=== PATIENT | female | born 1960 | race Two or more races ===

== ENCOUNTER → 2024-06-01 | Outpatient (CLI) | payer MEDICAID, SELFPAY ==
--- NOTE | 2024-06-01 15:02 | XR_ITS ---
Examination: CT abdomen and pelvis without contrast. Coronal 3-D reconstructions. Sagittal 2-D reconstructions. Date and time of exam:June 01, 2024 1530 hours INDICATIONS: Abdominal surgery tummy [place] April 21, 2024 with swelling and lump and drainage noticed beginning 3 weeks ago CTDI: vol (mGy): 7.42 DLP: (mGycm): 395 Technique: Axial images of the abdomen have been obtained, 3 mm slice thickness Intravenous contrast material has not been administered. Low dose protocols were performed. One or more of the following dose reduction techniques were used; automated exposure control, adjustment of the mA and/or KV according to patient size, use of iterative reconstruction technique. Findings: Gastric sutures No focal liver or splenic lesions No pancreatic or adrenal mass No renal or ureteral calculi Fluid containing mass in the anterior abdominal wall transverse dimension 15 cm AP dimension 6.2 cm cephalad caudad dimension 22 cm Urinary bladder intact Advanced degenerative disc disease L3-L4 IMPRESSION: Large fluid collection in the anterior abdominal wall 15 x 6.2 x 22 cm, consider seroma, hematoma
== END | disposition home or self-care (01) ==
LOC: CDIM 14:34
PROVIDERS: PCP Nurse Practitioner Family; Referring Provider Nurse Practitioner Family; Visit Provider Nurse Practitioner Family
DX: R10.9 Unspecified abdominal pain (principal)
CPT/HCPCS: 74176

== ENCOUNTER 2024-06-02 15:45 | Emergency (ER) | payer MEDICAID, SELFPAY ==
[2024-06-02 15:46] VITALS: BMI 25.6
--- NOTE | 2024-06-02 16:15 | XR_ITS ---
Examination: CT abdomen with intravenous contrast CT pelvis with intravenous contrast 2-D coronal reconstructions 2-D sagittal reconstructions Date and time of exam:June 02, 2024 1907 hrs. Comparison June 01, 2024 Indications: Abdominal distention and pain after abdominoplasty April 21, 2024. CTDI: vol (mGy) 7.85 DLP: (mGycm) 427 Technique: Multiple axial sections of the abdomen and pelvis have been obtained. 64 slice high-resolution scanner used. 3 mm axial sections have been obtained, post intravenous injection 60 cc Isovue-370 2-D sagittal, coronal reconstructions obtained. Low dose protocols were performed. One or more of the following dose reduction techniques were used; automated exposure control, adjustment of the mA and/or KV according to patient size, use of iterative reconstruction technique. Findings: No focal liver or splenic lesions Contracted gallbladder No pancreatic mass No hydronephrosis No bowel obstruction Normal appendix Enlarging fluid collection anterior abdominal wall, transverse dimension 16 cm AP dimension 7 cm cephalocaudad dimension 20 cm Urinary bladder intact Impression: Again noted very large fluid collection anterior abdominal wall, differential would include seroma, hematoma, abscess not excluded, clinical correlation advised
--- NOTE | 2024-06-02 16:21 | XR_ITS ---
Examination: PA chest single view TECHNIQUE: Upright PA chest single view Exam date and time: June 02, 2024 1628 hours INDICATIONS: Shortness of breath today. FINDINGS: The film is mislabeled right to left Normal heart size Lungs are clear The osseous structures are intact IMPRESSION: No active disease
--- NOTE | 2024-06-02 16:26 | XR_ITS ---
Examination: Abdomen sonogram, Limited Date and time of exam: 24 1712 hrs. Indications: Abdominal mass 2 months post tummy [facility] surgery April 21, 2024 Technique: Real-time gamboa scale transabdominal sonographic images of the upper abdomen obtained. Findings: Fluid-filled mass with septations 21 x 13 x 7 cm, consider seroma, hematoma at the area concern Impression: Large fluid-filled mass with septations, 21 x 13 x 7 cm, consider seroma, hematoma
[2024-06-02 16:27] VITALS: BP 100/67; PULSE 94; RESP 16; TEMP 37.1; O2SAT 97
--- NOTE | 2024-06-02 16:34 | EDNOTE_ITS ---
ED Skin Abcess FB-RME/HPI General Chief complaint: Skin/Abscess/Foreign Body Stated complaint: POSS ABCESS IN ABD S/P SURGERY/TUMMY TUCK Time Seen by Provider: 06/02/24 16:12 Arrival date/time: 06/02/24 15:45 RME / HPI RME / HPI narrative: This section includes all my notes and documentations, including HPI, PE, MDM, Procedure Notes, and PLAN. Diallo Yu MD HPI: 63 year old female with history of tummy tuck performed in [place], [place] on 04/21/2024, hypertension, diabetes, hyperlipidemia presents to the ED for evaluation of possible abdominal/skin infection post surgery. States she had her surgery performed 04/21/2024 without complications and followed up on 05/08/2024 where she had her drains removed. Says 3 days after drain removal noted discomfort and swelling to her abdomen and dainage from the belly button. Consulted with PCP who ordered a CT scan that she had performed yesterday and was called today advising she come to the ED. Denies any fever. But reports chills and diaphoresis at night. No other associated symptoms reported. ROS: Gastrointestinal: negative except as documented in HPI. Genitourinary: negative except as documented in HPI. Musculoskeletal: negative except as documented in HPI. Skin: negative except as documented in HPI. Neurological: negative except as documented in HPI. Physical Exam: General: Alert and oriented. No acute distress. Eyes: Conjunctivae and lids clear. ENT: No nasal congestion. Neck: Supple. Heart: RRR. Lungs: No respiratory distress. Good air movement. No rhonchi, wheezing, rales. Abdomen: Soft with football sized mass palpable. Decreased bowel sounds. No rebound or guarding. At the umbilicus and lower abdominal incision area, erythema and edema and calor and pus drainage noted. Skin: Warm and dry. Neuro: Alert and oriented X 3. I ordered diagnostic tests. At 6 PM on 06/02/24, the care of the patient was transferred to Dr. Garcia. I ordered oral KCl 40 mEq and MgSO4 2 gram IV with partial diagnostic test res ults showing hypokalemia and hypomagnesemia. Diallo Yu MD Related Data Home Medications ?Medication ?Instructions ?Recorded ?Confirmed atorvastatin 40 mg tablet 40 mg PO QPM 07/07/20 07/07/20 glipizide 5 mg tablet 5 mg PO BID 07/07/20 07/07/20 lisinopril 20 1 tab PO BID 07/07/20 07/08/20 mg-hydrochlorothiazide 12.5 mg tablet metformin 1,000 mg tablet 1,000 mg PO BID 07/07/20 07/07/20 Allergies Allergy/AdvReac Type Severity Reaction Status Date / Time UNKNOWN PAIN MED Allergy Severe Anaphylaxis Uncoded 06/02/24 15:49 Past Medical History Past Medical History CARDIAC: Positive Cardiac Disorders, Hypercholesterolemia and Hypertension GASTROINTESTINAL: Positive Gastrointestinal Disorders REPRODUCTIVE: Positive Previous Pregnancies MUSCULOSKELETAL: Positive Musculoskeletal Disorders and Arthritis ENDOCRINE: Positive Endocrine Disorders and Diabetes Mellitus Type 2 HEMATOLOGIC: Positive Blood Disorders and Anemia (IN THE PAST) OTHER HISTORY: Positive Shingles (5 YEARS AGO) and Chicken Pox Family History FAMILY HISTORY: Positive Family Cardiac Disorders (FATHER- HTN, BROTHER- OK) Surgical History SURGICAL: Positive Eye Surgery (LASIK), Nose Surgery (SINUS), Hysterectomy and Tubal Ligation Social History SMOKING STATUS: Never smoker Course Quality Measures none Orders Category Date Time Status CT Screening NOW Care 06/02/24 16:15 Active Saline [Insert IV] NOW Care 06/02/24 16:[address] abdomen pelvis w con Stat Exams 06/02/24 16:15 Ordered US abdomen limited Stat Exams 06/02/24 16:26 Ordered XR chest 1V portable Stat Exams 06/02/24 16:21 Completed Blood Culture (Lab) Stat Lab 06/02/24 16:44 Received CBC Stat Lab 06/02/24 16:44 Results CMP [Comprehensive Metabolic Panel] Stat Lab 06/02/24 16:44 Completed CRP [C-Reactive Protein] Stat Lab 06/02/24 16:44 Completed ESR [Sed Rate (ESR)] Stat Lab 06/02/24 16:44 Results Lactate (Lactic Acid) Stat Lab 06/02/24 16:44 Completed Magnesium Stat Lab 06/02/24 16:44 Completed Procalcitonin Stat Lab 06/02/24 16:44 Completed UA [Urinalysis] Stat Lab 06/02/24 17:05 Received KCL 10% Liq UDC 15 ML Med 06/02/24 17:29 Discontinued 40 meq PO X1 ONE Magnesium Sulfate 2 GM Ivpb [Magnesium Sulfate Ivpb] Med 06/02/24 17:29 Active 2 gm in 50 ml IV X1 Vital Signs Vital signs: Vital Signs Temperature 98.8 F 06/02/24 16:27 Pulse Rate 94 06/02/24 16:27 Respiratory Rate 16 06/02/24 16:27 Blood Pressure 100/67 06/02/24 16:27 Pulse Oximetry (%) 97 06/02/24 16:27 Oxygen Delivery Method Room Air 06/02/24 16:27 Skin / Abscess / Foreign Body Patient data External records reviewed:: [facility] previous records Clinical information provided by:: patient and family Social determinants that could affect healthcare access:: none Patient has the following chronic illnesses:: Hypertension, diabetes, hyperlipidemia How is presenting disease/condition affected by chronic disease/condition?: uneffected by Evaluation data The following diagnostics were reviewed and interpreted by me:: lab results and radiology exam(s) Lab and/or radiology exams considered but not ordered:: None Interpretation Summary: Diagnostic test results pending Medications / Prescriptions Medications or Prescriptions considered but not ordered:: None Medication administrations:: Medication Administration History Magnesium Sulfate (Magnesium Sulfate Ivpb) 2 gm in 50 mls @ 25 mls/hr IV X1 ONE Stop: 06/02/24 19:28 Discontinued Medications Potassium Chloride (Potassium Chloride 10% 20 Meq/15 Ml Udc) 40 meq PO X1 ONE Stop: 06/02/24 17:30 Potassium and magnesium Consultations Consultation(s) initiated? (list below): No Diagnosis Skin/Abscess Differential Diagnosis: abscess of skin or subcutaneous tissue and cellulitis Most likely diagnosis given after review of the tests above:: Diagnostic test results pending Admission Indicated Admission indicated?: not indicated Explain why admission is indicated or not indicated:: Diagnostic test results pending Admission Request Was there a request for admission?: No Disposition Plan Disposition Plan: other (specify) (Diagnostic test results pending) Discharge Plan Prescriptions/Referrals Prescriptions/Med Rec: No Action atorvastatin 40 mg Tablet 40 mg PO QPM lisinopril-hydrochlorothiazide 20-12.5 mg Tablet 1 tab PO BID metformin 1,000 mg Tablet 1,000 mg PO BID glipizide 5 mg Tablet 5 mg PO BID Problem List Clinical Impression: Post surgical complication Patient/Caregiver Discharge Instructions Print Language: Persian
[2024-06-02 16:52] LABS: Lactate (Lactic Acid) 1.5 mMol/L (0.4-2.0)
[2024-06-02 16:53] LABS: Basophils % (Auto) 0 % (0-2.5); Eosinophils % (Auto) 0 % (0-10); Hematocrit 28.8 % (36.0-46.0); Hemoglobin 9.7 g/dL (12.0-16.0); Immature Granulocytes % (Auto) 0 % (0-0); Immature Granulocytes Auto 0.04 Thou/mm3 (0.00-0.00); Lymphocytes # (Auto) 4.2 Thou/mm3 (1.0-4.8); Lymphocytes % (Auto) 40 % (10-50); Mean Corpuscular HGB Conc 33.7 g/dl (31.0-37.0); Mean Corpuscular Hemoglobin 27.2 pg (25.0-35.0); Mean Corpuscular Volume 81 fL (80-100); Monocytes # (Auto) 0.6 Thou/mm3 (0.0-0.8); Monocytes % (Auto) 6 % (0-12); Neutrophils # (Auto) 5.6 Thou/mm3 (1.8-7.7); Neutrophils % (Auto) 53 % (37-80); Nucleated Red Blood Cell % 0 /100 WBC (0); Platelet Count 676 Thou/mm3 (140-440); RDW Standard Deviation 37.8 fL (36.4-46.3); Red Blood Count 3.57 Miln/mm3 (4.00-5.20); White Blood Count 10.5 Thou/mm3 (3.6-11.0)
[2024-06-02 17:15] LABS: Sed Rate (ESR) 62 mm/hr (0-30)
[2024-06-02 17:23] LABS: Alanine Aminotransferase 26 U/L (10-49); Albumin, Serum 4.4 gm/dL (3.4-4.8); Albumin/Globulin Ratio 1.5 (1.2-2.2); Alkaline Phosphatase 121 U/L (46-116); Anion Gap 11 (7-16); Aspartate Amino Transferase 19 U/L (0-34); BUN/Creatinine Ratio 14 Ratio (12-20); Bilirubin,Total 0.2 mg/dL (0.3-1.2); Blood Urea Nitrogen 7 mg/dL (9-23); C-Reactive Protein 5.6 mg/dL (0.0-0.9); Calcium 9.3 mg/dL (8.3-10.6); Calcium (Corrected) 9.3 mg/dL (8.5-10.1); Chloride 96 mMol/L (98-107); Creatinine (Component) 0.5 mg/dL (0.6-1.3); Estimated Creatinine Clearance 99.5 mL/min (>60); Glucose 182 mg/dL (74-106); Magnesium 1.4 mg/dL (1.6-2.6); Osmolality,Calculated 261 (275-295); Potassium 3.2 mMol/L (3.4-5.1); Procalcitonin < 0.04 ng/ml (0.0-0.49); Sodium 129 mMol/L (136-145); Total Protein 7.4 gm/dL (5.7-8.2); eGFR > 60 See Note
[2024-06-02 17:25] LABS: Collection Type, Urine Clean Catch
[2024-06-02] MEDS: Magnesium Sulfate 2 GM Ivpb 2 GM/50 ML BAG IV (17:29)
[2024-06-02] MEDS: POTASSIUM CHLORIDE 10% 20 MEQ/15 ML UDC 40 MEQ PO (17:29)
[2024-06-02 18:12] LABS: Bacteria,Urine Rare; Bilirubin,Urine Negative (Negative); Blood,Urine Negative (Negative); Clarity,Urine Clear (Clear/Hazy); Color,Urine Yellow (Lt Yel-Yel); Glucose, Urine Negative (Negative); Ketones,Urine Negative (Negative); Leukocyte Esterase,Urine Negative (Negative); Nitrite,Urine Negative (Negative); Protein,Urine Negative (Neg - Trace); RBC,Urine 1 /hpf (0-3); Specific Gravity,Urine 1.012 (1.001-1.035); Squamous Epithelial Cell,Urine < 1 /hpf (0-5); Urobilinogen,Urine Negative mg/dL (0.0-1.0); WBC,Urine 1 /hpf (0-5)
[2024-06-02 18:19] VITALS: BP 128/77; PULSE 78; RESP 18; TEMP 36.8; O2SAT 100
--- NOTE | 2024-06-02 19:55 | EDNOTE_ITS ---
Emergency Room Addendum <Mirian Cates - Last Filed: 06/02/24 22:02> Addendum Narrative: 1800: Care assumed from Dr. Yu, the previous shift emergency physician. Past medical, surgical, social and family history reviewed. Vitals and home medications reviewed. I will assume the care of the patient at this time, pending remainder of diagnostic tests and final disposition. Please refer to the emergency department record for history and examination from initial visit.? Physical exam by me shows patient under no acute distress at this time. 2140: Patient remains clinically stable throughout the emergency department visit. Re-assessment at the time of disposition demonstrates that the patient is in no acute distress. We reviewed all the results, analysis, and treatment plans. Patient is amenable to discharge. Strict return precautions were outlined. Patient was discharged in stable condition. Diagnoses: Post surgical complication, Postoperative seroma RADIOLOGY Procedure(s): CT abdomen pelvis w con Accession Number(s): [id number] cc: Diallo Yu MD; Taiwo Landeros MD; NO PRIMARY/FAMILY,PHYSICIAN~ Examination: CT abdomen with intravenous contrast CT pelvis with intravenous contrast 2-D coronal reconstructions 2-D sagittal reconstructions Date and time of exam:June 02, 2024 1907 hrs. Comparison June 01, 2024 Indications: Abdominal distention and pain after abdominoplasty April 21, 2024. CTDI: vol (mGy) 7.85 DLP: (mGycm) 427 Technique: Multiple axial sections of the abdomen and pelvis have been obtained. 64 slice high-resolution scanner used. 3 mm axial sections have been obtained, post intravenous injection 60 cc Isovue-370 2-D sagittal, coronal reconstructions obtained. Low dose protocols were performed. One or more of the following dose reduction techniques were used; automated exposure control, adjustment of the mA and/or KV according to patient size, use of iterative reconstruction technique. Findings: No focal liver or splenic lesions Contracted gallbladder No pancreatic mass No hydronephrosis No bowel obstruction Normal appendix Enlarging fluid collection anterior abdominal wall, transverse dimension 16 cm AP dimension 7 cm cephalocaudad dimension 20 cm Urinary bladder intact Impression: Again noted very large fluid collection anterior abdominal wall, differential would include seroma, hematoma, abscess not excluded, clinical correlation advised Dictated By: Taiwo Landeros MD Procedure(s): US abdomen limited Accession Number(s): [id number] cc: Diallo Yu MD; Taiwo Landeros MD; NO PRIMARY/FAMILY,PHYSICIAN~ Examination: Abdomen sonogram, Limited Date and time of exam: 24 1712 hrs. Indications: Abdominal mass 2 months post tummy tuck surgery April 21, 2024 Technique: Real-time gamboa scale transabdominal sonographic images of the upper abdomen obtained. Findings: Fluid-filled mass with septations 21 x 13 x 7 cm, consider seroma, hematoma at the area concern Impression: Large fluid-filled mass with septations, 21 x 13 x 7 cm, consider seroma, hematoma Dictated By: Taiwo Landeros MD Procedure(s): XR chest 1V portable Accession Number(s): [id number] cc: Diallo Yu MD; Taiwo Landeros MD~ Examination: PA chest single view TECHNIQUE: Upright PA chest single view Exam date and time: June 02, 2024 1628 hours INDICATIONS: Shortness of breath today. FINDINGS: The film is mislabeled right to left Normal heart size Lungs are clear The osseous structures are intact IMPRESSION: No active disease Dictated By: Taiwo Landeros MD <Dulce Garica MD - Last Filed: 06/04/24 20:02> Addendum Narrative: 1800: Care assumed from Dr. Yu, the previous shift emergency physician. Past medical, surgical, social and family history reviewed. Vitals and home medications reviewed. I will assume the care of the patient at this time, pending remainder of diagnostic tests and final disposition. Please refer to the emergency department record for history and examination from initial visit.? Physical exam by me shows patient under no acute distress at this time. Abdomen no erythema, mild serous drainage from umbilicus, no increased warmth, large discreet mass consistent with seroma 2140: Patient remains clinically stable throughout the emergency department visit. Re-assessment at the time of disposition demonstrates that the patient is in no acute distress. We reviewed all the results, analysis, and treatment plans. Abdominal binder placed. Patient is amenable to discharge. Strict return precautions were outlined. Patient was discharged in stable condition. Diagnoses: Post surgical complication, Postoperative seroma RADIOLOGY Procedure(s): CT abdomen pelvis w con Accession Number(s): [id number] cc: Diallo Yu MD; Taiwo Landeros MD; NO PRIMARY/FAMILY,PHYSICIAN~ Examination: CT abdomen with intravenous contrast CT pelvis with intravenous contrast 2-D coronal reconstructions 2-D sagittal reconstructions Date and time of exam:June 02, 2024 1907 hrs. Comparison June 01, 2024 Indications: Abdominal distention and pain after abdominoplasty April 21, 2024. CTDI: vol (mGy) 7.85 DLP: (mGycm) 427 Technique: Multiple axial sections of the abdomen and pelvis have been obtained. 64 slice high-resolution scanner used. 3 mm axial sections have been obtained, post intravenous injection 60 cc Isovue-370 2-D sagittal, coronal reconstructions obtained. Low dose protocols were performed. One or more of the following dose reduction techniques were used; automated exposure control, adjustment of the mA and/or KV according to patient size, use of iterative reconstruction technique. Findings: No focal liver or splenic lesions Contracted gallbladder No pancreatic mass No hydronephrosis No bowel obstruction Normal appendix Enlarging fluid collection anterior abdominal wall, transverse dimension 16 cm AP dimension 7 cm cephalocaudad dimension 20 cm Urinary bladder intact Impression: Again noted very large fluid collection anterior abdominal wall, differential would include seroma, hematoma, abscess not excluded, clinical correlation advised Dictated By: Taiwo Landeros MD Procedure(s): US abdomen limited Accession Number(s): [id number] cc: Diallo Yu MD; Taiwo Landeros MD; NO PRIMARY/FAMILY,PHYSICIAN~ Examination: Abdomen sonogram, Limited Date and time of exam: 2 hrs. Indications: Abdominal mass 2 months post tummy tuck surgery April 21, 2024 Technique: Real-time gamboa scale transabdominal sonographic images of the upper abdomen obtained. Findings: Fluid-filled mass with septations 21 x 13 x 7 cm, consider seroma, hematoma at the area concern Impression: Large fluid-filled mass with septations, 21 x 13 x 7 cm, consider seroma, hematoma Dictated By: Taiwo Landeros MD Procedure(s): XR chest 1V portable Accession Number(s): [id number] cc: Diallo Yu MD; Taiwo Landeros MD~ Examination: PA chest single view TECHNIQUE: Upright PA chest single view Exam date and time: June 02, 2024 1628 hours INDICATIONS: Shortness of breath today. FINDINGS: The film is mislabeled right to left Normal heart size Lungs are clear The osseous structures are intact
[2024-06-02 20:07] VITALS: BP 127/73; PULSE 82; RESP 18; TEMP 36.6; O2SAT 99
[2024-06-02 22:01] VITALS: BP 128/75; PULSE 82; RESP 16; TEMP 36.8; O2SAT 100
== END 2024-06-02 22:03 | disposition home or self-care (01) ==
PROVIDERS: Emergency Medicine; Emergency Provider Emergency Medicine
DX: L76.34 Postprocedural seroma of skin and subcutaneous tissue following other procedure (principal); R06.02 Shortness of breath; Y83.8 Other surgical procedures as the cause of abnormal reaction of the patient, or of later complication, without mention of misadventure at the time of the procedure
CPT/HCPCS: 36415; 71045; 74177; 76705; 80053; 81001; 83605; 83735; 84145; 85025; 85652; 86140; 87040; 96365; 96366; 99285; A4649; J3475; Q9967; A9270

== ENCOUNTER → 2024-06-22 | Outpatient (CLI) | payer MEDICAID, SELFPAY | END | disposition home or self-care (01) | PROVIDERS: PCP Nurse Practitioner Family; Referring Provider Nurse Practitioner Family; Visit Provider Student in an Organized Health Care Education/Training Program | DX: T81.89XA Other complications of procedures, not elsewhere classified, initial encounter (principal); I10 Essential (primary) hypertension; E11.69 Type 2 diabetes mellitus with other specified complication; M17.10 Unilateral primary osteoarthritis, unspecified knee; Z79.4 Long term (current) use of insulin; Z98.890 Other specified postprocedural states; Z79.84 Long term (current) use of oral hypoglycemic drugs | CPT/HCPCS: 97597; 99213; A9270; G0463 ==

== ENCOUNTER → 2024-06-29 | Outpatient (CLI) | payer MEDICAID, SELFPAY | END | disposition home or self-care (01) | LOC: SWHD 10:02 | PROVIDERS: Visit Provider Student in an Organized Health Care Education/Training Program | DX: T81.89XA Other complications of procedures, not elsewhere classified, initial encounter (principal); I10 Essential (primary) hypertension; E11.69 Type 2 diabetes mellitus with other specified complication; M17.10 Unilateral primary osteoarthritis, unspecified knee; Z79.4 Long term (current) use of insulin; Z98.890 Other specified postprocedural states; Z79.84 Long term (current) use of oral hypoglycemic drugs | CPT/HCPCS: 97597; A9270 ==

== ENCOUNTER → 2024-07-06 | Outpatient (CLI) | payer MEDICAID, SELFPAY | END | disposition home or self-care (01) | LOC: SWHD 10:22 | PROVIDERS: PCP Nurse Practitioner Family; Referring Provider Nurse Practitioner Family; Visit Provider Surgery | DX: T81.89XA Other complications of procedures, not elsewhere classified, initial encounter (principal); I10 Essential (primary) hypertension; E11.69 Type 2 diabetes mellitus with other specified complication; M17.10 Unilateral primary osteoarthritis, unspecified knee; Z79.4 Long term (current) use of insulin; Z79.84 Long term (current) use of oral hypoglycemic drugs; Z98.890 Other specified postprocedural states | CPT/HCPCS: 17250; A9270 ==

== ENCOUNTER → 2024-07-13 | Outpatient (CLI) | payer MEDICAID, SELFPAY | END | disposition home or self-care (01) | LOC: SWHD 10:22 | PROVIDERS: PCP Nurse Practitioner Family; Referring Provider Nurse Practitioner Family; Visit Provider Student in an Organized Health Care Education/Training Program | DX: T81.89XA Other complications of procedures, not elsewhere classified, initial encounter (principal); I10 Essential (primary) hypertension; E11.69 Type 2 diabetes mellitus with other specified complication; M17.10 Unilateral primary osteoarthritis, unspecified knee; Z98.890 Other specified postprocedural states; Z79.84 Long term (current) use of oral hypoglycemic drugs; Z79.4 Long term (current) use of insulin | CPT/HCPCS: 17250; 11042; A9270 ==

== ENCOUNTER → 2024-07-20 | Outpatient (CLI) | payer MEDICAID, SELFPAY | END | disposition home or self-care (01) | LOC: SWHD 08:06 | PROVIDERS: PCP Nurse Practitioner Family; Referring Provider Nurse Practitioner Family; Visit Provider Student in an Organized Health Care Education/Training Program | DX: T81.89XA Other complications of procedures, not elsewhere classified, initial encounter (principal); I10 Essential (primary) hypertension; E11.69 Type 2 diabetes mellitus with other specified complication; M17.10 Unilateral primary osteoarthritis, unspecified knee; Z98.890 Other specified postprocedural states; Z79.4 Long term (current) use of insulin; Z79.84 Long term (current) use of oral hypoglycemic drugs | CPT/HCPCS: 99213; A9270; G0463 ==

== ENCOUNTER → 2024-08-03 | Outpatient (CLI) | payer MEDICAID, SELFPAY | END | disposition home or self-care (01) | LOC: SWHD 08:06 | PROVIDERS: PCP Nurse Practitioner Family; Referring Provider Nurse Practitioner Family; Visit Provider Student in an Organized Health Care Education/Training Program | DX: T81.89XA Other complications of procedures, not elsewhere classified, initial encounter (principal); I10 Essential (primary) hypertension; E11.69 Type 2 diabetes mellitus with other specified complication; M17.10 Unilateral primary osteoarthritis, unspecified knee; Z98.890 Other specified postprocedural states; Z79.4 Long term (current) use of insulin; Z79.84 Long term (current) use of oral hypoglycemic drugs | CPT/HCPCS: 99213; G0463 ==

== ENCOUNTER → 2024-11-03 | Outpatient (CLI) | payer MEDICARE, MEDICAID, SELFPAY ==
--- NOTE | 2024-11-03 | XR_ITS ---
Examination: PA lateral chest 2 views TECHNIQUE: Upright PA lateral chest 2 views Exam date and time: November 03, 2024 1240 hours Comparison June 02, 2024 INDICATIONS: Covid diagnosis one year ago FINDINGS: Normal heart size. Lungs are clear. Osseous structures are demineralized IMPRESSION: No active disease
== END | disposition home or self-care (01) ==
DX: Z01.818 Encounter for other preprocedural examination (principal)
CPT/HCPCS: 71046

== ENCOUNTER → 2024-11-12 | Outpatient (CLI) | payer MEDICARE, MEDICAID, SELFPAY ==
[2024-11-12 08:41] LABS: Basophils # (Auto) 0.1 Thou/mm3 (0.0-0.2); Basophils % (Auto) 1 % (0-2.5); Eosinophils % (Auto) 0 % (0-10); Hematocrit 38.6 % (36.0-46.0); Hemoglobin 12.8 g/dL (12.0-16.0); Immature Granulocytes % (Auto) 0 % (0-0); Immature Granulocytes Auto 0.02 Thou/mm3 (0.00-0.00); Lymphocytes # (Auto) 3.9 Thou/mm3 (1.0-4.8); Lymphocytes % (Auto) 44 % (10-50); Mean Corpuscular HGB Conc 33.2 g/dl (31.0-37.0); Mean Corpuscular Hemoglobin 27.8 pg (25.0-35.0); Mean Corpuscular Volume 84 fL (80-100); Monocytes # (Auto) 0.5 Thou/mm3 (0.0-0.8); Monocytes % (Auto) 6 % (0-12); Neutrophils # (Auto) 4.4 Thou/mm3 (1.8-7.7); Neutrophils % (Auto) 49 % (37-80); Nucleated Red Blood Cell % 0 /100 WBC (0); Platelet Count 428 Thou/mm3 (140-440); RDW Standard Deviation 43.4 fL (36.4-46.3); White Blood Count 8.9 Thou/mm3 (3.6-11.0)
[2024-11-12 09:07] LABS: Alanine Aminotransferase 19 U/L (10-49); Albumin, Serum 4.7 gm/dL (3.4-4.8); Albumin/Globulin Ratio 1.7 (1.2-2.2); Alkaline Phosphatase 100 U/L (46-116); Anion Gap 9 (7-16); Aspartate Amino Transferase 19 U/L (0-34); BUN/Creatinine Ratio 12 Ratio (12-20); Bilirubin,Total 0.6 mg/dL (0.3-1.2); Blood Urea Nitrogen 7 mg/dL (9-23); Calcium 9.3 mg/dL (8.3-10.6); Calcium (Corrected) 9.3 mg/dL (8.5-10.1); Carbon Dioxide 28.7 mMol/L (20.0-31.0); Chloride 100 mMol/L (98-107); Creatinine (Component) 0.6 mg/dL (0.6-1.3); Globulin 2.8 gm/dL (2.3-3.5); Glucose 97 mg/dL (74-106); Osmolality,Calculated 273 (275-295); Potassium 3.8 mMol/L (3.4-5.1); Sodium 138 mMol/L (136-145); Total Protein 7.5 gm/dL (5.7-8.2); eGFR > 60 See Note
[2024-11-12 09:25] LABS: Partial Thromboplastin Time 25.2 Seconds (22.0-36.0); Prothrombin Time 10.9 Seconds (9.0-12.2)
== END | disposition home or self-care (01) ==
LOC: COPL 07:31
PROVIDERS: PCP Family Medicine
DX: Z01.818 Encounter for other preprocedural examination (principal)
CPT/HCPCS: 36415; 80053; 85025; 85610; 85730

== ENCOUNTER → 2024-12-03 | Outpatient (CLI) | payer MEDICARE, MEDICAID, SELFPAY ==
[2024-12-03 13:11] VITALS: BMI 26.5
[2024-12-03 14:04] LABS: Basophils # (Auto) 0.1 Thou/mm3 (0.0-0.2); Basophils % (Auto) 0 % (0-2.5); Eosinophils % (Auto) 0 % (0-10); Hematocrit 39.9 % (36.0-46.0); Hemoglobin 13.4 g/dL (12.0-16.0); Immature Granulocytes % (Auto) 0 % (0-0); Immature Granulocytes Auto 0.03 Thou/mm3 (0.00-0.00); Lymphocytes # (Auto) 5.9 Thou/mm3 (1.0-4.8); Lymphocytes % (Auto) 49 % (10-50); Mean Corpuscular HGB Conc 33.6 g/dl (31.0-37.0); Mean Corpuscular Hemoglobin 28.2 pg (25.0-35.0); Mean Corpuscular Volume 84 fL (80-100); Monocytes # (Auto) 0.5 Thou/mm3 (0.0-0.8); Monocytes % (Auto) 4 % (0-12); Neutrophils # (Auto) 5.4 Thou/mm3 (1.8-7.7); Neutrophils % (Auto) 45 % (37-80); Nucleated Red Blood Cell % 0 /100 WBC (0); Platelet Count 423 Thou/mm3 (140-440); RDW Standard Deviation 42.4 fL (36.4-46.3); Red Blood Count 4.76 Miln/mm3 (4.00-5.20)
[2024-12-03 14:18] LABS: Prothrombin Time 11.4 Seconds (9.0-12.2)
[2024-12-03 14:25] LABS: Alanine Aminotransferase 18 U/L (10-49); Albumin, Serum 4.7 gm/dL (3.4-4.8); Albumin/Globulin Ratio 1.8 (1.2-2.2); Alkaline Phosphatase 95 U/L (46-116); Anion Gap 12 (7-16); BUN/Creatinine Ratio 15 Ratio (12-20); Bilirubin,Total 0.5 mg/dL (0.3-1.2); Blood Urea Nitrogen 9 mg/dL (9-23); Calcium 9.7 mg/dL (8.3-10.6); Calcium (Corrected) 9.7 mg/dL (8.5-10.1); Carbon Dioxide 27.5 mMol/L (20.0-31.0); Chloride 95 mMol/L (98-107); Creatinine (Component) 0.6 mg/dL (0.6-1.3); Estimated Creatinine Clearance 83.2 mL/min (>60); Globulin 2.6 gm/dL (2.3-3.5); Glucose 97 mg/dL (74-106); Osmolality,Calculated 266 (275-295); Potassium 4.5 mMol/L (3.4-5.1); Sodium 134 mMol/L (136-145); Total Protein 7.3 gm/dL (5.7-8.2); eGFR > 60 See Note
== END | disposition home or self-care (01) ==
LOC: SLAB 12-07 09:12
PROVIDERS: Anesthesiology; Referring Provider Orthopaedic Surgery; Visit Provider Orthopaedic Surgery
DX: Z01.812 Encounter for preprocedural laboratory examination (principal); M20.12 Hallux valgus (acquired), left foot
CPT/HCPCS: 36415; 80053; 85025; 85610; 85730

== ENCOUNTER → 2024-12-31 | Outpatient (CLI) | payer MEDICARE, MEDICAID, SELFPAY ==
[2024-12-31 09:10] LABS: Collection Type, Urine Clean Catch
[2024-12-31 09:34] LABS: Basophils # (Auto) 0.1 Thou/mm3 (0.0-0.2); Basophils % (Auto) 1 % (0-2.5); Eosinophils # (Auto) 0.0 Thou/mm3 (0.0-0.5); Eosinophils % (Auto) 0 % (0-10); Hematocrit 38.1 % (36.0-46.0); Hemoglobin 13.0 g/dL (12.0-16.0); Immature Granulocytes Auto 0.01 Thou/mm3 (0.00-0.00); Lymphocytes # (Auto) 3.8 Thou/mm3 (1.0-4.8); Lymphocytes % (Auto) 46 % (10-50); Mean Corpuscular HGB Conc 34.1 g/dl (31.0-37.0); Mean Corpuscular Hemoglobin 28.4 pg (25.0-35.0); Mean Corpuscular Volume 83 fL (80-100); Monocytes # (Auto) 0.5 Thou/mm3 (0.0-0.8); Monocytes % (Auto) 6 % (0-12); Neutrophils # (Auto) 3.9 Thou/mm3 (1.8-7.7); Neutrophils % (Auto) 47 % (37-80); Nucleated Red Blood Cell # 0.00 Thou/mm3 (0.00-0.00); Nucleated Red Blood Cell % 0 /100 WBC (0); Platelet Count 414 Thou/mm3 (140-440); RDW Standard Deviation 41.6 fL (36.4-46.3); Red Blood Count 4.57 Miln/mm3 (4.00-5.20); White Blood Count 8.3 Thou/mm3 (3.6-11.0)
[2024-12-31 09:37] LABS: Bilirubin,Urine Negative (Negative); Blood,Urine Negative (Negative); Clarity,Urine Clear (Clear/Hazy); Color,Urine Lt-Yellow (Lt Yel-Yel); Glucose, Urine Negative (Negative); Ketones,Urine Negative (Negative); Leukocyte Esterase,Urine Negative (Negative); Nitrite,Urine Negative (Negative); PH,Urine 8.5 (5.0-7.0); Protein,Urine Negative (Neg - Trace); RBC,Urine 2 /hpf (0-3); Specific Gravity,Urine 1.010 (1.001-1.035); Squamous Epithelial Cell,Urine < 1 /hpf (0-5); Urobilinogen,Urine Negative mg/dL (0.0-1.0); WBC,Urine < 1 /hpf (0-5)
[2024-12-31 09:38] LABS: Glucose Estimated Average 117 mg/dL (80-131); Hemoglobin A1C 5.7 % Hgb (4.8-6.0)
[2024-12-31 09:42] LABS: Alanine Aminotransferase 21 U/L (10-49); Albumin, Serum 4.4 gm/dL (3.4-4.8); Albumin/Globulin Ratio 1.6 (1.2-2.2); Alkaline Phosphatase 98 U/L (46-116); Anion Gap 8 (7-16); Aspartate Amino Transferase 20 U/L (0-34); BUN/Creatinine Ratio 10 Ratio (12-20); Bilirubin,Total 0.5 mg/dL (0.3-1.2); Blood Urea Nitrogen 6 mg/dL (9-23); Calcium 9.5 mg/dL (8.3-10.6); Calcium (Corrected) 9.5 mg/dL (8.5-10.1); Carbon Dioxide 30.2 mMol/L (20.0-31.0); Cardiac Risk Estimate 2.0 RATIO (3.7-5.6); Chloride 101 mMol/L (98-107); Cholesterol 145 mg/dL (132-200); Creatinine (Component) 0.6 mg/dL (0.6-1.3); Globulin 2.7 gm/dL (2.3-3.5); Glucose 107 mg/dL (74-106); HDL Cholesterol 71 mg/dL (40-60); LDL Cholesterol,Calculated 57 mg/dL (0-130); Osmolality,Calculated 275 (275-295); Potassium 4.8 mMol/L (3.4-5.1); Sodium 139 mMol/L (136-145); Total Protein 7.1 gm/dL (5.7-8.2); Triglycerides 86 mg/dL (30-150); eGFR > 60 See Note
== END | disposition home or self-care (01) ==
LOC: COPL 08:21
DX: Z00.01 Encounter for general adult medical examination with abnormal findings (principal)
CPT/HCPCS: 36415; 80053; 80061; 81001; 83036; 85025

== ENCOUNTER 2025-01-08 09:30 | Day surgery (SDC) | payer MEDICARE, MEDICAID, SELFPAY ==
[2025-01-07 10:17] VITALS: BMI 27.7
[2025-01-07 12:04] LABS: INR 1.0 (0.9-1.3); Partial Thromboplastin Time 25.4 Seconds (22.0-36.0); Prothrombin Time 10.8 Seconds (9.0-12.2)
--- NOTE | 2025-01-07 12:43 | ESHP_ITS ---
RE: DORY HU : 1960 DATE OF ADMISSION: 01/08/2025 HISTORY OF PRESENT ILLNESS: The patient has got significant big bunion on her left foot. It is bothering her a lot. Besides that her left big toe is deformed and is going inside. Clinically, the patient has significant hallux valgus deformity. X-ray confirmed the same. Intensity of discomfort and pain is 7-8/10. Unable to put shoes and unable to walk much. Basically, her quality of life and activities of daily living is affected. PAST MEDICAL HISTORY: The patient has history of high blood pressure and diabetes mellitus and hypercholesterolemia. PAST SURGICAL HISTORY: Hysterectomy and also left knee surgery. The patient also had right bunionectomy done in 1997. DRUG HISTORY: The patient is taking; 1. Atorvastatin. 2. Vitamin D2. 3. Lisinopril. 4. Metformin. 5. Ozempic. ALLERGIES: NIL KNOWN. FAMILY HISTORY AND SOCIAL HISTORY: The patient denies smoking. Admits to social drinking and is not working. PHYSICAL EXAMINATION: GENERAL: Normal built lady. VITAL SIGNS: Pulse 88 per minute. Blood pressure 136/82. NECK: Soft, supple. No masses felt. Trachea is centrally placed. CARDIOVASCULAR SYSTEM: First and second heart sounds normal. No murmur heard. RESPIRATORY SYSTEM: Bilateral vesicular breath sounds. CHEST: Clear. ABDOMEN: Soft. No masses felt. Bowel sounds present. MUSCULOSKELETAL: Left foot examination revealed hallux valgus deformity of the left big toe. There is a big bunion over the medial aspect of the metatarsophalangeal joint. The patient walks with a limp. The patient has some degree of flat foot as well. 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 ASSESSMENT AND PLAN: The patient was explained the diagnosis and prognosis. The patient wants surgical correction. Detailed discussion took place. I explained that the bone will be cut and it will be realigned. The patient will be in a splint for 6-8 weeks. No guarantees given regarding correction of the deformity and/or pain relief and the patient is fully aware of that. Since the patient has diabetes, therefore, the risk is much more. However, her HbA1c is 5.7, which means that diabetes is under well control. The patient will have to use crutches or walker to walk with after the surgical procedure. Surgical clearance was also obtained. Surgery is booked for 01/08/2025. Appropriate lab work done. DT: 11:56:49 TT: 12:41:00 Ref: [id number] - TID: [id number]
[2025-01-08] VITALS (8 sets, daily range): BP systolic 101–153; BP diastolic 63–88; PULSE 69–91; RESP 12–22; TEMP 36.4–36.8; O2SAT 95–98; BMI 27.6
[2025-01-08] MEDS: RINGERS LACTATED 1000 ML 1,000 ML 20 ML IV (10:32)
--- NOTE | 2025-01-08 10:45 | SUR.PREOP ---
Patient expressed gratitude for prayer before their procedure.
--- NOTE | 2025-01-08 11:00 | SUR.PREOP ---
1100: informed Dr. Bledsoe for BS 73 mg/dL, no new order received. pt denies any s/s of hypoglycemia.
--- NOTE | 2025-01-08 12:52 | SUR.PHASEI ---
pt received from OR in recovery bay 3. pt asleep but responds to voice, breathing unlabored on room air. v/s stable. pt dressing to left foot cdi. report recieved from Dr. Bledsoe and Katia CHOI.
--- NOTE | 2025-01-08 13:04 | SUR.PHASEI ---
pt able to tolerate oral fluids without difficulty swallowing or nauea/vomiting.
--- NOTE | 2025-01-08 13:05 | PD.SUROPNT ---
Date of Procedure 01/08/25 Pre Op Diagnosis 1. Left hallux valgus deformity 2. Left foot bunion Post Op Diagnosis Same Procedure 1. Bunionectomy 2. First metatarsal osteotomy Findings Patient had big bunion at the distal end of the medial aspect of the first metatarsal which measures about 1 cm to 1-1/2 cm in diameter. Patient also had significant hallux valgus deformity. Procedure Description The patient was given general endotracheal anesthesia. Once satisfactory anesthesia was achieved a tourniquet was placed on the left upper thigh. Following that part was thoroughly prepped and draped. After using Esmarch the tourniquet pressure was raised to 350 mmHg Intravenous antibiotics was given at the time of anesthesia A vertical skin incision was made from the midshaft of the first metatarsal on the medial aspect extending up to metatarsal phalange joint and up to the proximal half of the first phalanx. The skin was raised as a flap. Following that the capsule of the joint on the medial side was incised and was carried over the metatarsal phalange joint up to the attachment of the capsule onto the base of the first phalanx. The capsule was reflected as a flap. The bunion was exposed. With the help of saw the bunion was excised. With the help of bone rongeur the remnant of the bunion was removed. The wound was irrigated with antibiotic solution every 4 to 5 minutes Following that distal metatarsal osteotomy was performed with a saw. The bone was cut at 45 degree angle from the floor and 45 degree angle from the bone. After cutting the metal tarsal bone of the distal end was moved and made it straight. The capsule was then a stitch back while the dicta was held straight. Interrupted sutures were applied. At the end of the repair of the Stool the big toe was completely straight. Some reinforced with suture applied The subcu tissue was closed with 2-0 Vicryl and the skin was closed with 3-0 Prolene After cleaning the wound the local anesthesia was given. Ankle block was also given. About 20 mL of quarter percent Marcaine was used altogether. Following that a short leg splint was applied to keep the big toe in a straight alignment Patient tolerated procedure well. Tourniquet pressure was released Cemented blood loss 1 to 2 mL. Anesthesia GETA and other Pathology / specimen None Estimated Blood Loss 1 Surgeon Rashad Grullon MD Surgical Staff Operation Date: 01/08/25 11:30 Case Staff Anesthesiologist: Taj Bledsoe RNfire marshal refinery: Rebeca Lockett
--- NOTE | 2025-01-08 13:53 | SUR.PHASEII ---
pt awake and alert, breathing unlabored on room air. v/s stable. pt dressing to left foot cdi. pt able to transfer to wheelchair. d/c instructions given with daughter Yaz in room, all questions answered. pt d/c via wheelchair with all belongings.
== END 2025-01-08 13:53 | disposition home or self-care (01) ==
PROVIDERS: Referring Provider Orthopaedic Surgery; Visit Provider Orthopaedic Surgery
PROC: (CPT 28292; principal; 2025-01-08 11:30)
DX: M21.612 Bunion of left foot (principal); M20.12 Hallux valgus (acquired), left foot; Z90.710 Acquired absence of both cervix and uterus; E11.9 Type 2 diabetes mellitus without complications
CPT/HCPCS: 28296; 36415; 80053; 85025; 85610; 85730; A4217; A4649; J0690; J1100; J1580; J2704; J2765; J3010; J3490; J7120

== ENCOUNTER → 2025-03-29 | Outpatient (CLI) | payer MEDICARE, MEDICAID, SELFPAY ==
--- NOTE | 2025-03-29 09:49 | XR_ITS ---
Examination: Abdomen sonogram, complete Date and time of exam: March 29, 2025, 1021 INDICATIONS: Right flank pain beginning 2 months ago. Technique: Multiple real-time grayscale transabdominal sonographic images of the abdomen have been obtained. Findings: Normal gallbladder. Normal common bile duct 0.4 cm Pancreatic head 2.2 cm Aorta not enlarged. Liver 13.8 cm fatty infiltration right lobe hyperechoic structure 24 x 20 mm which may represent focal fatty sparing Normal hepatopedal portal venous flow Patent IVC Right kidney 10.8 cm cortex 1.1 cm Left kidney 9.5 cm cortex 1.3 cm Spleen 8.4 cm IMPRESSION: Normal gallbladder Focal area of probable fatty sparing in the liver, 24 x 20 mm, recommend 6 month about sonography follow-up
[2025-03-29 11:41] LABS: Basophils # (Auto) 0.1 Thou/mm3 (0.0-0.2); Basophils % (Auto) 1 % (0-2.5); Eosinophils # (Auto) 0.0 Thou/mm3 (0.0-0.5); Eosinophils % (Auto) 0 % (0-10); Hematocrit 37.3 % (36.0-46.0); Hemoglobin 12.5 g/dL (12.0-16.0); Immature Granulocytes Auto 0.04 Thou/mm3 (0.00-0.00); Lymphocytes # (Auto) 4.9 Thou/mm3 (1.0-4.8); Lymphocytes % (Auto) 46 % (10-50); Mean Corpuscular HGB Conc 33.5 g/dl (31.0-37.0); Mean Corpuscular Hemoglobin 28.7 pg (25.0-35.0); Mean Corpuscular Volume 86 fL (80-100); Monocytes # (Auto) 0.7 Thou/mm3 (0.0-0.8); Monocytes % (Auto) 7 % (0-12); Neutrophils # (Auto) 4.9 Thou/mm3 (1.8-7.7); Neutrophils % (Auto) 46 % (37-80); Nucleated Red Blood Cell # 0.00 Thou/mm3 (0.00-0.00); Nucleated Red Blood Cell % 0 /100 WBC (0); Platelet Count 475 Thou/mm3 (140-440); RDW Standard Deviation 39.9 fL (36.4-46.3); Red Blood Count 4.35 Miln/mm3 (4.00-5.20); White Blood Count 10.7 Thou/mm3 (3.6-11.0)
[2025-03-29 12:08] LABS: Alanine Aminotransferase 20 U/L (10-49); Albumin, Serum 4.7 gm/dL (3.4-4.8); Albumin/Globulin Ratio 1.6 (1.2-2.2); Alkaline Phosphatase 104 U/L (46-116); Anion Gap 10 (7-16); BUN/Creatinine Ratio 10 Ratio (12-20); Bilirubin,Total 0.3 mg/dL (0.3-1.2); Blood Urea Nitrogen 6 mg/dL (9-23); Calcium 10.1 mg/dL (8.3-10.6); Calcium (Corrected) 10.1 mg/dL (8.5-10.1); Carbon Dioxide 29.6 mMol/L (20.0-31.0); Chloride 99 mMol/L (98-107); Creatinine (Component) 0.6 mg/dL (0.6-1.3); Globulin 2.9 gm/dL (2.3-3.5); Glucose 102 mg/dL (74-106); Osmolality,Calculated 275 (275-295); Potassium 4.5 mMol/L (3.4-5.1); Sodium 139 mMol/L (136-145); Total Protein 7.6 gm/dL (5.7-8.2)
[2025-03-29 12:25] LABS: Aspartate Amino Transferase 22 U/L (0-34)
== END | disposition home or self-care (01) ==
DX: R10.31 Right lower quadrant pain (principal)
CPT/HCPCS: 36415; 76700; 80053; 85025